=== PATIENT | male | born 1940 | race Caucasian/White ===

== ENCOUNTER 2024-11-13 09:36 | Day surgery (SDC) | payer OTHER ==
[2024-11-13] MEDS ORDERED: BUPIVACAINE 0.5% VIAL IJ ONE (09:37)
[2024-11-13] MEDS ORDERED: methylPREDNISolone acetate IM ONE (09:37)
[2024-11-13] MEDS ORDERED: propofoL IV ONE (11:19)
--- NOTE | 2024-11-13 12:24 | XRAY ---
Indication: Left cluneal nerve block. Intraoperative fluoroscopy provided for 27 seconds. Single digital spot image submitted for interpretation demonstrates 3 posterior needle tips projecting over left iliac crest. Correlate with intraoperative findings/report.
--- NOTE | 2024-11-13 13:46 | XRAY ---
27 seconds of fluoroscopy was used in surgery for a left cluneal nerve block.
== END 2024-11-13 11:54 | disposition home or self-care (01) ==
LOC: SDC-PAIN 09:36
PROVIDERS: ATTEND Psychiatry & Neurology Pain Medicine
DX: M54.50 Low back pain, unspecified (principal); E11.9 Type 2 diabetes mellitus without complications
CPT/HCPCS: 64450; 72170; 77002; 82947; J1010; J2704